=== PATIENT | female | born 1955 | race Caucasian/White ===

== ENCOUNTER → 2017-10-31 | Outpatient (CLI) | payer BC | END | disposition home or self-care (01) | LOC: C.LABMFLN 08:40 | PROVIDERS: ATTEND Family Medicine | DX: E78.5 Hyperlipidemia, unspecified (principal) ==

== ENCOUNTER 2024-03-11 09:06 | Inpatient (IN) ==
--- OUTSIDE RECORDS SUMMARY | 2024-03-11 09:12 | External Medical Summary | Summary of Care ---
Author Name Unknown Organization [facility] Address [address] [place] [address] Phone [phone] Care Team Providers Care Transport Technician Name Role Phone Sudheer Joaquin Primary Care Provider + [phone] Encounter Details Date Type Department Care Team (Latest Contact Info) Description 12/23/2023 8:27 AM EDT - 12/23/2023 11:59 PM EDT Hospital Encounter Radiology, [address] [place] [address] Arrived Discharge Disposition: Home - Self Care Allergies Active Allergy Reactions Criticality Noted Date Comments Erythromycin Base Abdominal pain 03/29/2008 documented as of this encounter (statuses as of 12/24/2023) Medications Medication Sig Dispensed Refills Start Date End Date Status CALTRATE 600 1500 MG PO TABS 1 tab daily 0 Active MULTI-VITAMIN PO TABS 1 tab daily 0 Ac tive Meloxicam (MOBIC) 7.5 MG TabletIndications:Gene ralized osteoarthritis Take 1 Tab by mouth daily. for pain. 30 Tab 11 05/23/2017 Active ondansetron ODT (ZOFRAN) [address] 1 Tab on tongue every 8 hours as needed for Nausea. dissolve on tongue. 2 Tab 0 11/19/2017 Active Additional Information Patient not taking.Informant: At Discharge, Reported on 03/03/2023 Albuterol Sulfate (TO GO ALBUTEROL HFA) puff Two puffs every 4-6 hours as needed for cough or difficulty breathing, use with spacer 1 Each 0 11/19/2017 Active Additional Information Patient not taking.Informant: At Discharge, Reported on 03/03/2023 Omeprazole 20 MG Oral Capsule Delayed Release (PriLOSEC) Take 1 Capsule by mouth in the morning. 0 Active documented as of this encounter (statuses as of 12/24/2023) Active Problems Problem Noted Date Diagnosed Date ADVANCE DIRECTIVE INFORMATION 03/29/2008 documented as of this encounter (statuses as of 12/24/2023) Immunizations Name Administration Dates Next Due Seasonal Influenza, Split, IIV3, With Preserve, Inj 05/30/2017 documented as of this encounter Social History Tobacco Use Types Packs/Day Years Used Date Smoking Tobacco: Never Smokeless Tobacco: Never Alcohol Use Standard Drinks/Week Comments No 0 (1 standard drink = 0.6 oz pur e alcohol) Sex and Gender Information Value Date Recorded Sex Assigned at Not on file Gender Identity Not on file Sexual Orientation Not on file Job Start Date Occupation Industry Not on file Not on file Not on file documented as of this encounter Plan of Treatment Pending Results Name Type Priority Associated Diagnoses Date /Time MAMMOGRAM SCREENING LYN BILATERAL Medical Imaging Routine Encounter for screening mammogram for malignant neoplasm of breast 12/23/2023 8:41 AM EDT Scheduled Procedures Name Priority Associated Diagnoses Date/Ti me COLONOSCOPY FLEXIBLE PROXIMAL DIAGNOSTIC Recall History of colon polyps Health Maintenance Due Date Last Done Comments Hepatitis C Screening 1971 DTaP,Tdap,and Td Vaccines (1 - Tdap) 01/30/1972 Hepatitis B (2 of 3 - 19+ 3-dose series) 09/05/1995 08/08/1995 Cologuard 1998 Fecal Occult Blood Test 1998 Sigmoidoscopy 1998 Zoster Vaccines (1 of 2) 2003 Depression Screening 05/23/2018 05/23/2017 Lipid Panel 05/23/2022 05/23/2017, 11/0 10/2015, 05/11/2014 COVID-19 Vaccine ( - season) 2023 Mammogram 12/22/2023 12/21/2022, 0311/2021, 10/15/2020, Additional history exists Influenza Vaccine (FLU shot) (Season Ended) 2024 05/30/2017 Colonoscopy 03/03/2026 03/03/2023, 02/06, 06/16/2017, Additional history exists Colorectal Cancer Screening 03/03/2026 DXA Scan 05/20/2030 05/20/2023, 06/08, 05/10/2014 Pneumococcal Vaccine: 65+ Years Completed 05/30/2019, 05/29/2018 RETIRED - COLONOSCOPY-EVERY 5 YRS AGES 18-100 Discontinued 03/03/2023, 03/03/2023, 06/16/2017, Additional history exists GARDASIL-HPV IMMUNIZATION SERIES Aged Out No longer eligible based on patient's age to complete this topic MENINGOCOCCAL (MENACTRA/MENVEO) Aged Out No longer eligible based on patient's age to complete this topic documented as of this encounter Medical Devices Not on filedocumented as of this encounter Visit Diagnoses Diagnosis Encounter for screening mammogram for malignant neoplasm of breast Other screening mammogram documented in this encounter Care Teams Transport Technician Relationship Specialty Start Date End Date [facility] [address] [facility] [id number] P[facility] - General Family Medicine 11/19/17 documented as of this encounter
--- NOTE | 2024-03-11 09:41 | Emergency Department Note ---
Impression & Plan Acute cholecystitis ED Provider Note Name: JOANNE ROSS Age: 69 Sex: Female Arrives Via: Walk-In Informant: Patient ED Provider: Cesar Jain MD Chief Complaint: Right flank pain Impression: As per impressions above Medical Decision Making: Pleasant 69-year-old female arrives for evaluation of right flank pain. On examination has some right upper quadrant discomfort. Associated with a fair amount of nausea. Laboratory workup is essentially unremarkable. Given the amount of discomfort she is having a CT of the ab pelvis was obtained. There is no evidence of renal colic or kidney infection however there is concerning findings for acute cholecystitis. I discussed this with general surgery who ordered an ultrasound of the gallbladder. No evidence of stones but does still have some pericholecystic fluid. Plan will be to bring into medicine team with HIDA scan done overnight and determination if surgery necessary tomorrow. I did give patient IV Mefoxin for presumptive management initially of cholecystitis. Patient's pain and nausea was managed with IV medications. Triage/Nursing Notes reviewed by Me Differential:Renal colic, UTI, cholecystitis, appendicitis, diverticulitis, mesenteric ischemia, aortic pathology, infections, inflammatory bowel disease, PUD, biliary pathology, as well as other pathologies. Vital Signs: reviewed and remarkable for no significant abnormalities Interventions: Dilaudid 0.5 mg IV, Zofran 4 mg IV, Reglan 5 mg IV, Benadryl 25 mg IV, normal saline bolus 1 L IV, Mefoxin 2 g IV Labs:ED labs Reviewed by me and remarkable for no significant abnormalities Imaging:CT of the abdomen pelvis with IV contrast as per mind from interpretation distention of the gallbladder. Radiologist notes some trace fluid around the gallbladder as well concerning for acute cholecystitis. Consults:Discussed with general surgery who evaluated the patient and advised ultrasound and hospitalization on medical service for further workup. Discussed with hospitalist who will bring in for HIDA scan and further management. Plan: Disposition:Hospitalization. Condition: Good History of Present Illness: 69-year-old female arrives for evaluation of flank pain. Patient with several days of right-sided flank pain. Had noticed this on and off for last few weeks but severe the last 2 to 3 days. Associate with nausea. Does not seem to get better with positioning. No radiation down legs. No urinary symptoms, fevers, chills, abdominal pain, chest pain or other concerning signs or symptoms. No falls, trauma, injuries. No recent dehydration. Was not doing any hiking. Has been traveling the last few weeks. No blood thinner or aspirin use. Past Medical History: Hypertension amongst others Home Medications: Lisinopril amongst others Allergies: Erythromycin ointment Vitals:Blood Pressure: 156/72, Pulse 67, RR 18, T 36.6C, O2 98% on RA Physical Exam: GENERAL: Patient is uncomfortable appearing and in moderate distress. RESPIRATORY: No dyspnea. Clear to auscultation and equal bilaterally. CARDIOVASCULAR: Regular rate and rhythm.No murmur appreciated. GASTROINTESTINAL: Mild tenderness to palpation of the right upper quadrant and some of the right abdomen. BACK: No midline tenderness, right CVA tenderness EXTREMITIES: Normal motion all extremities, no cyanosis, no edema. NEUROLOGIC: Alert and oriented. No focal neurologic deficits appreciated SKIN: No rash, no jaundice, no diaphoresis. PSYCH: Appropriate GCS: 15 ED Course: Times/Reassessments: Pain controlled with IV Dilaudid. Did have recurrent nausea for which Reglan given with improvement. Agreeable to hospitalization Cesar Jain MD Past Med/Surg History Problem List (Updated 03/11/24 @ 18:22 by Cesar Jain MD) Acute cholecystitis (Acute) Hypertension Acute cholecystitis Acute right flank pain Well adult on routine health check Right ear impacted cerumen Adenomatous colon polyp Myalgia Post-menopause ETD (eustachian tube dysfunction) Leukopenia Hyperlipidemia Osteopenia Left leg DVT COVID-19 Varicose veins of bilateral lower extremities with pain Bilateral calf pain SNHL (sensorineural hearing loss) Tinnitus, bilateral Atypical nevus Leukopenia Right hip pain Lumbar pain Right thyroid nodule Hyperlipidemia Encounter for screening mammogram for malignant neoplasm of breast Medical History Conductive hearing loss of both ears High frequency CHL Acute bronchitis Surgical History H/O colonoscopy 03/03/23 repeat 3yrs History of tubal ligation Hx of breast biopsy Family History Mother Heart disease Hypertension Hearing loss Myocardial infarction Unknown Breast cancer Father Stroke Hearing loss Grandmother Cancer Other No family history of allergies No family history of bleeding disorder Denies family history of Ovarian cancer Prostate cancer Colorectal cancer Social History Smoking Status: Never smoker Second Hand Exposure: No; Do You Dip or Chew Tobacco: No; Hx Alcohol Use: No Hx Substance Use: No Preferred Language: Yoruba Communication Ability: Effective Visual Impairment: Limited Hearing Ability: Normal Dough Braker Required: No Beliefs That Will Affect Care: None marital status: Current Living Situation: Spouse current occupational status: retired and other current occupation: part-time with [employer] How many Children do You have: 3 Other Information That Helps Us Care for You: No Feels Safe at Home: Yes Childhood Exposure to Second-Hand Smoke: No Diet: regular caffeine: Yes (coffee) during the past year weight has: remained stable Dental Care, Regularly: Yes Physical Activity Frequency: 3-4 Times per Week Physical Activity Frequency Comment: Walk, rides bicycle Seatbelt Use: always Sunscreen Use: Yes Do you think of yourself as: straight/heterosexual Gender Identity: Female Assistive Devices: Glasses Allergies Allergies Allergy/AdvReac Type Severity Reaction Status Date / Time erythromycin base AdvReac abdominal Verified 10/17/23 08:03 pain Home Meds Home Medications Medication Instructions Recorded Confirmed coenzyme Q10 75 mg capsule (Ultra 30 mg PO BID 01/18/23 03/11/24 CoQ10) salmon oil 1,000 mg-omega-3 fatty 1 cap PO BID 01/18/23 03/11/24 acids 210 mg capsule turmeric root extract 500 mg 750 mg PO BID 01/18/23 03/11/24 capsule red yeast rice 600 mg capsule 600 mg PO DAILY 10/17/23 03/11/24 Previous Rx's Medication Instructions Recorded lisinopril 5 mg tablet 5 mg PO DAILY #30 tabs 10/17/23 omeprazole 20 mg capsule,delayed 20 mg PO DAILY PRN heartburn #30 10/21/23 release caps Results & Data (ED) Vital Signs Vital Signs - 24 hr 03/11/24 09:07 03/11/24 11:30 Temperature 36.6 C Temperature Source Oral Pulse Rate 67 Pulse Rate [Right Finger] 72 Respiratory Rate 18 17 Respiratory Effort / Characteristics Non-Labored Spontaneous Respiratory Depth Normal Blood Pressure 156/72 H Blood Pressure [Right Arm] 179/86 H Blood Pressure Mean 100 Blood Pressure Mean [Right Arm] 117 Blood Pressure Position [Right Arm] Semi-fowlers Pulse Oximetry 98 93 Oxygen Delivery Method Room Air Room Air Sepsis Recent Fever Within 48 Hours No Sepsis New/Unexplained Change in Mental Status N/A Sepsis Action Taken by Nursing No Action Required Laboratory Data 03/11/24 09:52 03/11/24 09:52 Lab Results 03/11/24 03/11/24 03/11/24 Range/Units 09:52 09:53 10:14 WBC 4.86 (4.8-10.8) K/ul RBC 4.74 (4.20-5.40) M/uL Hgb 13.9 (12.0-16.0) g/dl POC Hgb 12.2 (12.0-16.0) g/dl Hct 42.5 (37.0-47.0) % POC Hct 36 L (37-47) % MCV 89.7 (80.0-100.0) fL MCH 29.3 (25.0-34.0) pg MCHC 32.7 (32.0-36.0) g/dL RDW Std Deviation 41.0 (36.4-46.3) fL RDW Coeff of Luther 12.4 (11.5-14.5) % Plt Count 172 (130-400) K/uL MPV 9.8 (9.4-12.4) fL Immature Gran % (Auto) 0.2 % Neut % (Auto) 68.6 % Lymph % (Auto) 24.9 % Traverse % (Auto) 4.9 % Eos % (Auto) 0.8 % Baso % (Auto) 0.6 % Neut # (Auto) 3.33 (1.40-6.50) K/uL Lymph # (Auto) 1.21 (1.20-3.40) K/uL Traverse # (Auto) 0.24 (0.11-0.59) K/uL Eos # (Auto) 0.04 (0.00-0.50) K/uL Baso # (Auto) 0.03 (0.00-0.20) K/uL Immature Gran # (Auto) 0.01 (0.01-0.20) K/uL POC Sodium 137 (135-144) mmol/L Sodium 136 (136-145) mmol/L POC Potassium 4.0 (3.3-5.0) mmol/L Potassium 4.1 (3.5-5.1) mmol/L POC Chloride 103 (101-112) mmol/L Chloride 101 (98-107) mmol/L Carbon Dioxide 29 (21-32) mmol/L POC Total CO2 25 (24-31) mmol/L Anion Gap 6 (3-11) POC Anion Gap 15.0 L (16-25) mmol/L POC BUN 10 (7-18) mg/dl BUN 11 (6-23) mg/dl Creatinine 0.77 (0.6-1.2) mg/dl POC Creatinine 0.8 (0.6-1.3) mg/dl Est Cr Clr Drug Dosing 55.3 ml/min Est GFR ( Amer) 90.0 ml/min Est GFR (Non-Af Amer) 77.7 ml/min BUN/Creatinine Ratio 14.3 (10-20) Glucose 102 H (70-99(Fasting)) mg/dl POC Glucose (other) 96 (70-99) mg/dl Calcium 9.6 (8.6-10.3) mg/dl POC Ioniz Calcium Magno 1.16 (1.12-1.32) mmol/l Total Bilirubin 0.7 (0.2-1.0) mg/dl Direct Bilirubin 0.1 (0-0.2) mg/dl AST 20 (13-39) U/L ALT 12 (7-52) U/L Alkaline Phosphatase 60 (34-104) U/L Total Protein 7.1 (6.0-8.3) gm/dl Albumin 4.4 (3.4-5.0) gm/dl Lipase 25 (11-82) U/L Urine Color Yellow Urine Appearance Clear (Clear) Urine pH 6.5 (4.5-7.5) Ur Specific Seneca 1.025 (1.000-1.030) Urine Protein Negative (Negative) Urine Glucose (UA) Negative (Negative) Urine Ketones Negative (Negative) Urine Blood Negative (Negative) Urine Nitrite Negative (Negative) Urine Bilirubin Negative (Negative) Urine Urobilinogen Negative (Negative) Ur Leukocyte Esterase 1+ H (Negative) Urine WBC (Auto) 0-5 (0-5) /hpf Urine RBC (Auto) 0-2 (0-2) /hpf U Hyaline Cast (Auto) 0-2 (0-2) /lpf U Epithel Cells (Auto) 0-2 (0-2) /hpf Urine Bacteria (Auto) None Seen (None Seen) Administered Medications Hydromorphone HCl (Hydromorphone Inj 0.5 Mg/0.5 Ml Syr) 0.25 mg IV Q3H PRN PRN Reason: Mod-Sev Pain (Scale 4-10) Stop: 03/25/24 13:19 Last Admin: 03/11/24 16:30 Dose: 0.25 mg Documented By: DOMINIK Potassium Chloride/Sodium Chloride (Normal Saline W/20 Meq Kcl) 20 meq in 1,000 mls @ 80 mls/hr IV .[id number] [facility]; Protocol Stop: 03/12/24 14:29 Last Infusion: 03/11/24 17:51 Dose: 80 mls/hr Documented By: Infusion: 03/11/24 16:36 Dose: 0 mls/hr Documented By: Admin: 03/11/24 14:04 Dose: 80 mls/hr Documented By: AMADO Discontinued Medications Diphenhydramine HCl (Diphenhydramine 50 Mg/Ml Vial) 25 mg IV NOW STA Stop: 03/11/24 11:15 Last Admin: 03/11/24 11:27 Dose: 25 mg Documented By: AMADO Hydromorphone HCl (Hydromorphone Inj 0.5 Mg/0.5 Ml Syr) 0.5 mg IV NOW STA Stop: 03/11/24 09:39 Last Admin: 03/11/24 09:53 Dose: 0.5 mg Documented By: AMADO Sodium Chloride (Nss) 1,000 mls @ 999 mls/hr IV .Q1H1M ONE Stop: 03/11/24 10:38 Last Infusion: 03/11/24 11:45 Dose: Infused Documented By: Admin: 03/11/24 09:49 Dose: 999 mls/hr Documented By: AMADO Cefoxitin Sodium (Mefoxin) 2,000 mg in 60 mls @ 100 mls/hr IV NOW STA Stop: 03/11/24 12:14 Last Infusion: 03/11/24 12:49 Dose: Infused Documented By: Admin: 03/11/24 12:03 Dose: 100 mls/hr Documented By: AMADO Pantoprazole Sodium 40 mg/ (Syringe) 10 mls @ 5 mls/min IV NOW ONE Stop: 03/11/24 13:46 Last Admin: 03/11/24 14:04 Dose: 5 mls/min Documented By: AMADO Piperacillin Sod/Tazobactam (Sod 4.5 gm/ Dextrose) 100 mls @ 200 mls/hr IV NOW ONE; Protocol Stop: 03/11/24 16:59 Last Infusion: 03/11/24 17:21 Dose: Infused Documented By: Admin: 03/11/24 16:32 Dose: 200 mls/hr Documented By: DOMINIK Ioversol (Optiray 320 100ml) 94 ml IV ONCE ONE Stop: 03/11/24 10:51 Last Admin: 03/11/24 10:50 Dose: 94 ml Documented By: ANGELA Metoclopramide HCl (Metoclopramide Hcl Inj 5 Mg/Ml 2 Ml Vial) 5 mg IV ONE ONE Stop: 03/11/24 11:15 Last Admin: 03/11/24 11:27 Dose: 5 mg Documented By: AMADO Ondansetron HCl (Ondansetron Inj 2 Mg/Ml 2 Ml Vial) 4 mg IV NOW STA Stop: 03/11/24 09:39 Last Admin: 03/11/24 09:53 Dose: 4 mg Documented By: AMADO Imaging Data Radiologist's Impression: Abdomen/Pelvis CT 03/11/24 09:[address] WITH IV CONTRAST CT DOSE: 739.95 mGy.cm HISTORY: right flank pain TECHNIQUE: Multiaxial CT images of the abdomen and pelvis were performed following the use of intravenous contrast. A dose lowering technique was utilized adhering to the principles of ALARA. COMPARISON STUDY: None. FINDINGS: The lung bases are clear. No pneumoperitoneum. No pneumatosis. No acute fractures. The liver, spleen, pancreas, adrenal glands, and right kidney are unremarkable. There is a 4 mm fat-containing lesion within the left kidney consistent with an angiomyolipoma. The main portal vein is patent. The gallbladder is mildly distended with trace pericholecystic fluid and minimal pericholecystic inflammatory change. This is suspicious for an acute cholecystitis. Mild calcified plaque within the normal caliber abdominal aorta. No retroperitoneal or pelvic lymphadenopathy. Normal bladder. No ureteral stones. No hydronephrosis. The uterus and bilateral adnexa are unremarkable. Trace pelvic free fluid. This is likely physiologic. Colonic diverticulosis. No evidence for acute diverticulitis. No bowel wall thickening or obstruction. Normal appendix. IMPRESSION: 1. Distended gallbladder with trace pericholecystic fluid and subtle inflammatory change. This likely represents acute cholecystitis. Surgical consultation recommended. 2. No renal or ureteral stones. No hydronephrosis. 3. No bowel wall thickening or obstruction. ACT 112: Negative or not required by law. Electronically signed by: Stanton Burton M.D. 03/11/2024 11:15 AM Liver Ultrasound 03/11/24 11:53 ABDOMINAL ULTRASOUND, RIGHT UPPER QUADRANT HISTORY: Abnormal CT. Right upper quadrant pain for eval acute aren, and cholelithiasis. COMPARISON: None. FINDINGS: Pancreas: The pancreas demonstrates a normal echotexture. Liver: There is mild intrahepatic bile duct dilatation noted. No hepatic masses. Gallbladder: The gallbladder is distended. No gallstones identified. No significant gallbladder wall thickening. Trace pericholecystic fluid is noted. The technologist was unable to assess for a sonographic Haines's sign due to the patient's pain medication. CBD: Upper limits of normal measuring 6.2 mm Right kidney: No hydronephrosis. IMPRESSION: 1. Distended gallbladder with trace pericholecystic fluid. However, there are no gallstones or gallbladder wall thickening. Therefore, these findings are equivocal for acute acalculus cholecystitis and could be due to underlying hepatic pathology. Clinical correlation recommended. 2. Mild intrahepatic bile duct dilatation. However, the common bile duct is normal in caliber. ACT 112: Negative or not required by law. Electronically signed by: Stanton Burton M.D. 03/11/2024 1:37 PM Discharge Plan Visit Data Chief Complaint: Back Injury/Pain Stated Complaint: BACK PAIN ED Provider: Cesar Jain Discharge Problem: Acute cholecystitis Patient Disposition: Admitted As Inpatient Discharge Instructions Interventions: ED Discharge Assessment Last Done: 03/11/24 14:55
[2024-03-11] MEDS: SODIUM CHLORIDE 0.9% 1,000 ML IV ONE (09:49)
[2024-03-11] MEDS: HYDROmorphone INJ 0.5 MG/0.5 ML SYR IV STA (09:53)
[2024-03-11] MEDS: ONDANSETRON INJ 2 MG/ML 2 ML VIAL IV STA (09:53)
[2024-03-11 10:02] LABS: Basophils # (auto) 0.03 K/uL (0.00-0.20); Basophils % (auto) 0.6 %; Eosinophils # (auto) 0.04 K/uL (0.00-0.50); Eosinophils % (auto) 0.8 %; Hematocrit (blood only) 42.5 % (37.0-47.0); Hemoglobin 13.9 g/dl (12.0-16.0); Immature Granulocytes # (auto) 0.01 K/uL (0.01-0.20); Immature Granulocytes % (auto) 0.2 %; Lymphocytes # (auto) 1.21 K/uL (1.20-3.40); Lymphocytes % (auto) 24.9 %; Mean Corpuscular Hemoglobin 29.3 pg (25.0-34.0); Mean Corpuscular Hgb Conc 32.7 g/dL (32.0-36.0); Mean Corpuscular Volume 89.7 fL (80.0-100.0); Mean Platelet Volume 9.8 fL (9.4-12.4); Monocytes # (auto) 0.24 K/uL (0.11-0.59); Monocytes % (auto) 4.9 %; Neutrophils # (auto) 3.33 K/uL (1.40-6.50); Neutrophils % (auto) 68.6 %; Platelet Count 172 K/uL (130-400); RDW Coefficient of Variation 12.4 % (11.5-14.5); Red Blood Count 4.74 M/uL (4.20-5.40); White Blood Count 4.86 K/ul (4.8-10.8)
[2024-03-11 10:06] LABS: Appearance Urine Clear (Clear); Bacteria Urine Automated None Seen (None Seen); Bilirubin Urine Negative (Negative); Blood Urine Negative (Negative); Cast Urine Automated 0-2 /lpf (0-2); Color Urine Yellow; Epithelial Cell Urine Auto 0-2 /hpf (0-2); Glucose Urine UA Negative (Negative); Ketones Urine Negative (Negative); Leukocyte Esterase Urine 1+ (Negative); Nitrite Urine Negative (Negative); Protein Urine Negative (Negative); RBC Urine Automated 0-2 /hpf (0-2); Specific Gravity Urine 1.025 (1.000-1.030); Urobilinogen Urine Negative (Negative); WBC Urine Automated 0-5 /hpf (0-5); pH Urine 6.5 (4.5-7.5)
[2024-03-11 10:23] LABS: Albumin Level 4.4 gm/dl (3.4-5.0); BUN Creatinine Ratio 14.3 (10-20); Bilirubin Direct 0.1 mg/dl (0-0.2); Bilirubin,Total 0.7 mg/dl (0.2-1.0); Calcium 9.6 mg/dl (8.6-10.3); Creatinine Clr Calc Pharmacy 55.3 ml/min; Est GFR (Non-African American) 77.7 ml/min; Potassium 4.1 mmol/L (3.5-5.1); Total Protein 7.1 gm/dl (6.0-8.3)
[2024-03-11 10:27] LABS: iSTAT Creatinine 0.8 mg/dl (0.6-1.3); iSTAT Hemoglobin 12.2 g/dl (12.0-16.0); iSTAT Ionized Calcium 1.16 mmol/l (1.12-1.32)
[2024-03-11] MEDS: OPTIRAY 320 100ml IV ONE (10:50)
--- NOTE | 2024-03-11 11:17 | CT Scan Report ---
ABDOMEN AND PELVIS CT WITH IV CONTRAST CT DOSE: 739.95 mGy.cm HISTORY: right flank pain TECHNIQUE: Multiaxial CT images of the abdomen and pelvis were performed following the use of intrave nous contrast. A dose lowering technique was utilized adhering to the principles of ALARA. COMPARISON STUDY: None. FINDINGS: The lung bases are clear. No pneumoperitoneum. No pneumatosis. No acute fractures. The live r, spleen, pancreas, adrenal glands, and right kidney are unremarkable. There is a 4 mm fat-containin g lesion within the left kidney consistent with an angiomyolipoma. The main portal vein is patent. Th e gallbladder is mildly distended with trace pericholecystic fluid and minimal pericholecystic inflam matory change. This is suspicious for an acute cholecystitis. Mild calcified plaque within the normal caliber abdominal aorta. No retroperitoneal or pelvic lymphadenopathy. Normal bladder. No ureteral s tones. No hydronephrosis. The uterus and bilateral adnexa are unremarkable. Trace pelvic free fluid. This is likely physiologic. Colonic diverticulosis. No evidence for acute diverticulitis. No bowel wa ll thickening or obstruction. Normal appendix. IMPRESSION: 1. Distended gallbladder with trace pericholecystic fluid and subtle inflammatory change. This likely represents acute cholecystitis. Surgical consultation recommended. 2. No renal or ureteral stones. No hydronephrosis. 3. No bowel wall thickening or obstruction. ACT 112: Negative or not required by law. Electronically signed by: Stanton Burton M.D. 03/11/2024 11:15 AM
[2024-03-11] MEDS: diphenhydrAMINE 50 MG/ML VIAL IV STA (11:27)
[2024-03-11] MEDS: METOCLOPRAMIDE HCL INJ 5 MG/ML 2 ML VIAL IV ONE (11:27)
[2024-03-11] MEDS: cefOXitin 2,000 MG/60 ML BAG IV STA (12:03)
--- NOTE | 2024-03-11 12:32 | Surgery Consultation ---
Date of Consultation March 11, 2024 Assessment & Plan (1) Acute right flank pain: This is a 69yF with a PMH of ABDI PICHARDO who presents to the [facility] ED on 03/11/24 with complaints of R sided flank pain. The patient states the pain has been intermittent since about Tuesday, but has become more severe and constant ove rnight. Due to her symptoms she reports to the ER for further evaluation. She underwent workup with a CT a/p that shows a distended gallbladder with trace pericholecystic fluid and subtle inflammatory change. concerning for acute cholecystitis. Blood work shows WBC 4.8, Hbg 13.9, Cr 0.77. LFTs are within normal limits. Vital signs are stable. On exam patient's abdomen is soft, non distended, with discomfort to palpation in the epigastric and RUQ regions and along R upper back. CT scan does not make mention of cholelithiasis. Therefore in the meantime we will obtain a RUQ US for further evaluation. If there is no mention of gallstones on US then we would recommend a HIDA scan be obtain to further rule in or out cholecystitis. In the meantime while further workup is underway we would recommend if patient can be admitted to the medicine service and we will follow along closely. We will tentatively add patient on to the OR schedule for tomorrow if workup does indeed nocturnist physician to be strongly + for gallbladder etiology of her pain. Keep NPO/IVF and IV abx. Discussed plan with patient and who are agreeable. Supervising Physician Co-Signing Physician Notes pnt d/w Christin Sullivan, labs and imaging reviewed, agree with above. Presented with flank pain, CT showed distended gallbladder, possi cholecystitis. No stones, wbc normal. US showed no stones. Recommend admit to medicine, HIDA scan. History of Present Illness History of Present Illness This is a 69yF with a PMH of ABDI PICHARDO who presents to the [facility] ED on 03/11/24 with complaints of R sided flank pain that is stabbing in nature. The patient states the pain has been intermittent since about Tuesday, but has become more severe and constant overnight. When asked to point where her pain is she refers to her R flank area. She says at its worst the pain was a 10/10 and she could not get comfortable [id number] last night. Due to her symptoms she reports to the ER for further evaluation. She underwent workup with a CT a/p that shows a distended gallbladder with trace pericholecystic fluid and subtle inflammatory change. This likely represents acute cholecystitis. Patient reports she did vomit in the ER, but believes this to be secondary to meds she received. She does feel slightly better than when she presented at this point. She denies any fevers/chills, CP/SOB, or change in bowel habits. She denies any urinary symptoms. She never had pain like this before. No issues in the past with eating spicy/fatty/greasy meals. PSH includes a tubal ligation. She did last eat mac and cheese and a chili dog for dinner yesterday, has been NPO since. Allergies Allergy/AdvReac Type Severity Reaction Status Date / Time erythromycin base AdvReac abdominal Verified 10/17/23 08:03 pain Home Medications Medication Instructions Recorded Confirmed Type coenzyme Q10 75 mg capsule (Ultra 30 mg PO BID 01/18/23 03/11/24 History CoQ10) salmon oil 1,000 mg-omega-3 fatty 1 cap PO BID 01/18/23 03/11/24 History acids 210 mg capsule turmeric root extract 500 mg 750 mg PO BID 01/18/23 03/11/24 History capsule lisinopril 5 mg tablet 5 mg PO DAILY #30 tabs 10/17/23 03/11/24 Rx red yeast rice 600 mg capsule 600 mg PO DAILY 10/17/23 03/11/24 History omeprazole 20 mg capsule,delayed 20 mg PO DAILY PRN heartburn #30 10/21/23 03/11/24 Rx release caps Patient History Medical History Conductive hearing loss of both ears High frequency CHL Acute bronchitis Surgical History H/O colonoscopy 03/03/23 repeat 3yrs History of tubal ligation Hx of breast biopsy Family History Mother Heart disease Hypertension Hearing loss Myocardial infarction Unknown Breast cancer Father Stroke Hearing loss Grandmother Cancer Other No family history of allergies No family history of bleeding disorder Denies family history of Ovarian cancer Prostate cancer Colorectal cancer Social History Smoking Status: Never smoker Second Hand Exposure: No; Do You Dip or Chew Tobacco: No; Hx Alcohol Use: No Hx Substance Use: No Preferred Language: Estonian Visual Impairment: Limited Hearing Ability: Normal marital status: Current Living Situation: Spouse current occupational status: retired and other current occupation: part-time with [email or web address] How many Children do You have: 3 Feels Safe at Home: Yes Childhood Exposure to Second-Hand Smoke: No Diet: regular caffeine: Yes (coffee) during the past year weight has: remained stable Dental Care, Regularly: Yes Physical Activity Frequency: 3-4 Times per Week Physical Activity Frequency Comment: Walk, rides bicycle Seatbelt Use: always Sunscreen Use: Yes Do you think of yourself as: straight/heterosexual Gender Identity: Female Assistive Devices: Glasses Review of Systems Constitutional: no fever and no chills Respiratory: no dyspnea Cardiovascular: no chest pain Gastrointestinal: + abdominal pain, + nausea and + vomitin g; no change in bowel habits Genitourinary: no problem reported Musculoskeletal: R flank pain into upper R back Physical Exam Physical Exam: awake/alert Constitutional: well developed and well nourished Respiratory: normal respiratory effort Gastrointestinal (Abdomen): Inspection/Auscultation: abdomen not distended Percussion/Palpation: + abdomen tender (i elicit ttp in epigastric/ruq regions to deep palpation) and abdomen soft Results & Data Vital Signs (Past 12 Hours) Vital Signs Temp Pulse Pulse Resp BP BP Pulse Ox 03/11/24 11:30 72 17 179/86 H 93 03/11/24 09:07 97.9 F 67 18 156/72 H 98 O2 Del Method 03/11/24 11:30 Room Air 03/11/24 09:07 Room Air Diagnostic Findings ABDOMEN AND PELVIS CT WITH IV CONTRAST CT DOSE: 739.95 mGy.cm HISTORY: right flank pain TECHNIQUE: Multiaxial CT images of the abdomen and pelvis were performed following the use of intravenous contrast. A dose lowering technique was utilized adhering to the principles of ALARA. COMPARISON STUDY: None. FINDINGS: The lung bases are clear. No pneumoperitoneum. No pneumatosis. No acute fractures. The liver, spleen, pancreas, adrenal glands, and right kidney are unremarkable. There is a 4 mm fat-containing lesion within the left kidney consistent with an angiomyolipoma. The main portal vein is patent. The gallb ladder is mildly distended with trace pericholecystic fluid and minimal pericholecystic inflammatory change. This is suspicious for an acute cholecystitis. Mild calcified plaque within the normal caliber abdominal aorta. No retroperitoneal or pelvic lymphadenopathy. Normal bladder. No ureteral stones. No hydronephrosis. The uterus and bilateral adnexa are unremarkable. Trace pelvic free fluid. This is likely physiologic. Colonic diverticulosis. No evidence for acute diverticulitis. No bowel wall thickening or obstruction. Normal appendix. IMPRESSION: 1. Distended gallbladder with trace pericholecystic fluid and subtle inflammatory change. This likely represents acute cholecystitis. Surgical consultation recommended. 2. No renal or ureteral stones. No hydronephrosis. 3. No bowel wall thickening or obstruction. ACT 112: Negative or not required by law. Electronically signed by: Stanton Burton M.D. 03/11/2024 11:15 AM PG Care Time/CCT Total # of Minutes Spent Total Time Spent with Patient: Total time spent is greater than 50% in coordination of care (as documented) at patient's floor/unit and/or counseling patient: Coding Level of Care Code 30471 OP VST NEW MOD 45 MIN Diagnoses Acute right flank pain R10.9
[2024-03-11] MEDS ORDERED: ONDANSETRON INJ 2 MG/ML 2 ML VIAL IV PRN (13:21)
--- NOTE | 2024-03-11 13:22 | History & Physical Report ---
Date of Service March 11, 2024 Assessment & Plan (1) Acute cholecystitis: (2) Hyperlipidemia: (3) SNHL (sensorineural hearing loss): (4) Hypertension: (5) Right hip pain: (6) Lumbar pain: Plan Acute cholecystitis CT scan shows distended gallbladder with trace pericholecystic fluid and subtle inflammatory change. This likely represents acute cholecystitis Liver ultrasound liver ultrasound shows distended gallbladder with trace pericholecystic fluid. However there are no gallstones or gallbladder wall thickening. Therefore these findings are equivocal for acute calculus cholecystitis and could be due to underlying fatty pathology. Mild intrahepatic bile duct dilatation noted with common bile duct normal in caliber N.p.o. Pantoprazole 40 mg IV daily Zofran 4 mg IV every 6 hours as needed Dilaudid 0.25 mg IV every 3 hours as needed for moderate to severe pain Zosyn 4.5 g IV every 8 hours Order HIDA scan Consult general surgery Hypertension- Hold lisinopril GERD- Change omeprazole to pantoprazole IV Osteoarthritis- Hold OTC medications History of Present Illness Chief Complaint: The patient presents to the emergency department with 1 week of persistent back pain, today, awoke with nausea, vomiting and abdominal discomfort with right- sided flank pain. Primary Care Provider: Sudheer Joaquin DO The patient is a 69-year-old female with a past medical history including hyperlipidemia, left lower extremity DVT, SNHL,, right hip pain, and low back pain. She presents to the emergency department with approximately 1 week of back pain and right flank pain, but upon awakening today developed nausea/vomiting with epigastric and right upper quadrant discomfort. Allergies Allergy/AdvReac Type Severity Reaction Status Date / Time erythromycin base AdvReac abdominal Verified 10/17/23 08:03 pain Home Medications Medication Instructions Recorded Confirmed Type coenzyme Q10 75 mg capsule (Ultra 30 mg PO BID 01/18/23 03/11/24 History CoQ10) salmon oil 1,000 mg-omega-3 fatty 1 cap PO BID 01/18/23 03/11/24 History acids 210 mg capsule turmeric root extract 500 mg 750 mg PO BID 01/18/23 03/11/24 History capsule lisinopril 5 mg tablet 5 mg PO DAILY #30 tabs 10/17/23 03/11/24 Rx red yeast rice 600 mg capsule 600 mg PO DAILY 10/17/23 03/11/24 History omeprazole 20 mg capsule,delayed 20 mg PO DAILY PRN heartburn #30 10/21/23 03/11/24 Rx release caps Past Med/Surg History Problem List (Updated 03/11/24 @ 18:22 by Cesar Jain MD) Acute cholecystitis (Acute) Hypertension Acute cholecystitis Acute right flank pain Well adult on routine health check Right ear impacted cerumen Adenomatous colon polyp Myalgia Post-menopause ETD (eustachian tube dysfunction) Leukopenia Hyperlipidemia Osteopenia Left leg DVT COVID-19 Varicose veins of bilateral lower extremities with pain Bilateral calf pain SNHL (sensorineural hearing loss) Tinnitus, bilateral Atypical nevus Leukopenia Right hip pain Lumbar pain Right thyroid nodule Hyperlipidemia Encounter for screening mammogram for malignant neoplasm of breast Medical History Conductive hearing loss of both ears High frequency CHL Acute bronchitis Surgical History H/O colonoscopy 03/03/23 repeat 3yrs History of tubal ligation Hx of breast biopsy Family History Mother Heart disease Hypertension Hearing loss Myocardial infarction Unknown Breast cancer Father Stroke Hearing loss Grandmother Cancer Other No family history of allergies No family history of bleeding disorder Denies family history of Ovarian cancer Prostate cancer Colorectal cancer Social History Smoking Status: Never smoker Second Hand Exposure: No; Do You Dip or Chew Tobacco: No; Hx Alcohol Use: No Hx Substance Use: No Preferred Language: Indonesian Communication Ability: Effective Visual Impairment: Limited Hearing Ability: Normal Motor Transport Inspector Required: No Beliefs That Will Affect Care: None marital status: Current Living Situation: Spouse current occupational status: retired and other current occupation: part-time with [employer] How many Children do You have: 3 Other Information That Helps Us Care for You: No Feels Safe at Home: Yes Childhood Exposure to Second-Hand Smoke: No Diet: regular caffeine: Yes (coffee) during the past year weight has: remained stable Dental Care, Regularly: Yes Physical Activity Frequency: 3-4 Times per Week Physical Activity Frequency Comment: Walk, rides bicycle Seatbelt Use: always Sunscreen Use: Yes Do you think of yourself as: straight/heterosexual Gender Identity: Female Assistive Devices: Glasses Review of Systems Review of Systems: The patient denies chest pain, palpitations, shortness of breath, dyspnea on exertion, cough, lower extremity swelling, sore throat, fevers, chills, sweats, weight change, blood in urine or stool, dysuria, urinary frequency or urgency, lightheadedness, dizziness, headache, memory loss, loss of consciousness, rash, abnormal bruising or bleeding, imbalance, focal weakness, numbness or tingling in arms or legs, generalized arthralgias or myalgias, neck pain, or night sweats. The review of systems is otherwise negative other than for that already noted above, and at least 10 systems have been reviewed. Physical Exam Physical Exam: The patient is awake, alert and oriented 3, well developed and well nourished, normocephalic and atraumatic, lying in bed and in no acute distress. HEENT--PERRL, EOMI, mucous membranes and oropharynx mildly dry. Neck--supple. No JVD. No bruits. Thyroid normal, trachea midline, no adenopathy. Heart--normal S1 and S2. No murmurs, rubs or gallops. Lungs--clear bilaterally, no respiratory distress, no accessory muscle use. Abdomen--normal bowel sounds and soft. Mild epigastric pain. Nondistended Extremities--no cyanosis or clubbing. No edema. Dermatologic--normal skin turgor, normal color, no abnormal lymph nodes, no rash. Neurologic--cranial nerves II through XII grossly intact. Rheumatologic--normal range of motion. Psychiatric--normal affect. Results & Data Results & Data Vital Signs (Past 12 Hours) Vital Signs Temp Pulse Pulse Resp BP BP Pulse Ox 03/11/24 11:30 72 17 179/86 H 93 03/11/24 09:07 36.6 C 67 18 156/72 H 98 O2 Del Method 03/11/24 11:30 Room Air 03/11/24 09:07 Room Air Laboratory Results Laboratory Results WBC 4.86 K/ul (4.8-10.8) 03/11/24 09:52 RBC 4.74 M/uL (4.20-5.40) 03/11/24 09:52 Hgb 13.9 g/dl (12.0-16.0) 03/11/24 09:52 POC Hgb 12.2 g/dl (12.0-16.0) 03/11/24 10:14 Hct 42.5 % (37.0-47.0) 03/11/24 09:52 POC Hct 36 % (37-47) L 03/11/24 10:14 MCV 89.7 fL (80.0-100.0) 03/11/24 09:52 MCH 29.3 pg (25.0-34.0) 03/11/24 09:52 MCHC 32.7 g/dL (32.0-36.0) 03/11/24 09:52 RDW Std Deviation 41.0 fL (36.4-46.3) 03/11/24 09:52 RDW Coeff of Luther 12.4 % (11.5-14.5) 03/11/24 09:52 Plt Count 172 K/uL (130-400) 03/11/24 09:52 MPV 9.8 fL (9.4-12.4) 03/11/24 09:52 Immature Gran % (Auto) 0.2 % 03/11/24 09:52 Neut % (Auto) 68.6 % 03/11/24 09:52 Lymph % (Auto) 24.9 % 03/11/24 09:52 Wayne % (Auto) 4.9 % 03/11/24 09:52 Eos % (Auto) 0.8 % 03/11/24 09:52 Baso % (Auto) 0.6 % 03/11/24 09:52 Neut # (Auto) 3.33 K/uL (1.40-6.50) 03/11/24 09:52 Lymph # (Auto) 1.21 K/uL (1.20-3.40) 03/11/24 09:52 Wayne # (Auto) 0.24 K/uL (0.11-0.59) 03/11/24 09:52 Eos # (Auto) 0.04 K/uL (0.00-0.50) 03/11/24 09:52 Baso # (Auto) 0.03 K/uL (0.00-0.20) 03/11/24 09:52 Immature Gran # (Auto) 0.01 K/uL (0.01-0.20) 03/11/24 09:52 POC Sodium 137 mmol/L (135-144) 03/11/24 10:14 Sodium 136 mmol/L (136-145) 03/11/24 09:52 POC Potassium 4.0 mmol/L (3.3-5.0) 03/11/24 10:14 Potassium 4.1 mmol/L (3.5-5.1) 03/11/24 09:52 POC Chloride 103 mmol/L (101-112) 03/11/24 10:14 Chloride 101 mmol/L (98-107) 03/11/24 09:52 Carbon Dioxide 29 mmol/L (21-32) 03/11/24 09:52 POC Total CO2 25 mmol/L (24-31) 03/11/24 10:14 Anion Gap 6 (3-11) 03/11/24 09:52 POC Anion Gap 15.0 mmol/L (16-25) L 03/11/24 10:14 POC BUN 10 mg/dl (7-18) 03/11/24 10:14 BUN 11 mg/dl (6-23) 03/11/24 09:52 Creatinine 0.77 mg/dl (0.6-1.2) 03/11/24 09:52 POC Creatinine 0.8 mg/dl (0.6-1.3) 03/11/24 10:14 Est Cr Clr Drug Dosing 55.3 ml/min 03/11/24 09:52 Est GFR ( Amer) 90.0 ml/min 03/11/24 09:52 Est GFR (Non-Af Amer) 77.7 ml/min 03/11/24 09:52 BUN/Creatinine Ratio 14.3 (10-20) 03/11/24 09:52 Glucose 102 mg/dl (70-99(Fasting)) H 03/11/24 09:52 POC Glucose (other) 96 mg/dl (70-99) 03/11/24 10:14 Calcium 9.6 mg/dl (8.6-10.3) 03/11/24 09:52 POC Ioniz Calcium Magno 1.16 mmol/l (1.12-1.32) 03/11/24 10:14 Total Bilirubin 0.7 mg/dl (0.2-1.0) 03/11/24 09:52 Direct Bilirubin 0.1 mg/dl (0-0.2) 03/11/24 09:52 AST 20 U/L (13-39) 03/11/24 09:52 ALT 12 U/L (7-52) 03/11/24 09:52 Alkaline Phosphatase 60 U/L (34-104) 03/11/24 09:52 Total Protein 7.1 gm/dl (6.0-8.3) 03/11/24 09:52 Albumin 4.4 gm/dl (3.4-5.0) 03/11/24 09:52 Lipase 25 U/L (11-82) 03/11/24 09:52 Urine Color Yellow 03/11/24 09:53 Urine Appearance Clear (Clear) 03/11/24 09:53 Urine pH 6.5 (4.5-7.5) 03/11/24 09:53 Ur Specific [place] 1.025 (1.000-1.030) 03/11/24 09:53 Urine Protein Negative (Negative) 03/11/24 09:53 Urine Glucose (UA) Negative (Negative) 03/11/24 09:53 Urine Ketones Negative (Negative) 03/11/24 09:53 Urine Blood Negative (Negative) 03/11/24 09:53 Urine Nitrite Negative (Negative) 03/11/24 09:53 Urine Bilirubin Negative (Negative) 03/11/24 09:53 Urine Urobilinogen Negative (Negative) 03/11/24 09:53 Ur Leukocyte Esterase 1+ (Negative) H 03/11/24 09:53 Urine WBC (Auto) 0-5 /hpf (0-5) 03/11/24 09:53 Urine RBC (Auto) 0-2 /hpf (0-2) 03/11/24 09:53 U Hyaline Cast (Auto) 0-2 /lpf (0-2) 03/11/24 09:53 U Epithel Cells (Auto) 0-2 /hpf (0-2) 03/11/24 09:53 Urine Bacteria (Auto) None Seen (None Seen) 03/11/24 09:53 Impressions Abdomen/Pelvis CT 03/11/24 09:[address] WITH IV CONTRAST CT DOSE: 739.95 mGy.cm HISTORY: right flank pain TECHNIQUE: Multiaxial CT images of the abdomen and pelvis were performed following the use of intravenous contrast. A dose lowering technique was utilized adhering to the principles of ALARA. COMPARISON STUDY: None. FINDINGS: The lung bases are clear. No pneumoperitoneum. No pneumatosis. No acute fractures. The liver, spleen, pancreas, adrenal glands, and right kidney are unremarkable. There is a 4 mm fat-containing lesion within the left kidney consistent with an angiomyolipoma. The main portal vein is patent. The gallbladder is mildly distended with trace pericholecystic fluid and minimal pericholecystic inflammatory change. This is suspicious for an acute cholecystitis. Mild calcified plaque within the normal caliber abdominal aorta. No retroperitoneal or pelvic lymphadenopathy. Normal bladder. No ureteral stones. No hydronephrosis. The uterus and bilateral adnexa are unremarkable. Trace pelvic free fluid. This is likely physiologic. Colonic diverticulosis. No evidence for acute diverticulitis. No bowel wall thickening or obstruction. Normal appendix. IMPRESSION: 1. Distended gallbladder with trace pericholecystic fluid and subtle inflammatory change. This likely represents acute cholecystitis. Surgical consultation recommended. 2. No renal or ureteral stones. No hydronephrosis. 3. No bowel wall thickening or obstruction. ACT 112: Negative or not required by law. Electronically signed by: Stanton Burton M.D. 03/11/2024 11:15 AM Liver Ultrasound 03/11/24 11:53 ABDOMINAL ULTRASOUND, RIGHT UPPER QUADRANT HISTORY: Abnormal CT. Right upper quadrant pain for eval acute aren, and cholelithiasis. COMPARISON: None. FINDINGS: Pancreas: The pancreas demonstrates a normal echotexture. Liver: There is mild intrahepatic bile duct dilatation noted. No hepatic masses. Gallbladder: The gallbladder is distended. No gallstones identified. No significant gallbladder wall thickening. Trace pericholecystic fluid is noted. The technologist was unable to assess for a sonographic Haines's sign due to the patient's pain medication. CBD: Upper limits of normal measuring 6.2 mm Right kidney: No hydronephrosis. IMPRESSION: 1. Distended gallbladder with trace pericholecystic fluid. However, there are no gallstones or gallbladder wall thickening. Therefore, these findings are equivocal for acute acalculus cholecystitis and could be due to underlying hepatic pathology. Clinical correlation recommended. 2. Mild intrahepatic bile duct dilatation. However, the common bile duct is normal in caliber. ACT 112: Negative or not required by law. Electronically signed by: Stanton Burton M.D. 03/11/2024 1:37 PM Code Status & VTE Plan Code Status Full code VTE Prophylaxis Plan VTE Prophylaxis will be ordered: Yes PG Care Time/CCT Total # of Minutes Spent Total Time Spent with Patient: Total time spent is greater than 50% in coordination of care (as documented) at patient's floor/unit and/or counseling patient: Coding Level of Care Code 09725 INT INP/OBS CARE 3/75MIN Diagnoses Acute cholecystitis K81.0 Hyperlipidemia E78.5 Sensorineural hearing loss (SNHL) of both ears H90.3 Laterality: bilateral Hypertension I10 Right hip pain M25.551 Lumbar pain M54.5 (3) SNHL (sensorineural hearing loss) Laterality: bilateral Qualified Code(s): H90.3 - Sensorineural hearing loss, bilateral
--- NOTE | 2024-03-11 13:38 | Ultrasound Report ---
ABDOMINAL ULTRASOUND, RIGHT UPPER QUADRANT HISTORY: Abnormal CT. Right upper quadrant pain for eval acute aren, and cholelithiasis. COMPARISON: None. FINDINGS: Pancreas: The pancreas demonstrates a normal echotexture. Liver: There is mild intrahepatic bile duct dilatation noted. No hepatic masses. Gallbladder: The gallbladder is distended. No gallstones identified. No significant gallbladder wall thickening. Trace pericholecystic fluid is noted. The technologist was unable to assess for a sonogra phic Haines's sign due to the patient's pain medication. CBD: Upper limits of normal measuring 6.2 mm Right kidney: No hydronephrosis. IMPRESSION: 1. Distended gallbladder with trace pericholecystic fluid. However, there are no gallstones or gallbl adder wall thickening. Therefore, these findings are equivocal for acute acalculus cholecystitis and could be due to underlying hepatic pathology. Clinical correlation recommended. 2. Mild intrahepatic bile duct dilatation. However, the common bile duct is normal in caliber. ACT 112: Negative or not required by law. Electronically signed by: Stanton Burton M.D. 03/11/2024 1:37 PM
[2024-03-11] MEDS: NSS + 20MEQ KCL 20 MEQ/1,000 ML BAG IV SCH (14:04)
[2024-03-11] MEDS: PANTOprazole 40 MG in SYRINGE 0 ML IV ONE (14:04)
[2024-03-11] MEDS: HYDROmorphone INJ 0.5 MG/0.5 ML SYR IV PRN (16:30)
[2024-03-11] MEDS: PIPER/TAZO 4.5g in D5W MINI-B 100 ML IV ONE (16:32)
[2024-03-11] MEDS: PIPERACILLIN/TAZOBACTAM 4.5 GM in DEXTROSE 5% MINI-B 100 ML IV SCH (22:05)
[2024-03-11] MEDS: ONDANSETRON INJ 2 MG/ML 2 ML VIAL IV PRN (22:28)
[2024-03-12 08:33] LABS: Basophils # (auto) 0.03 K/uL (0.00-0.20); Basophils % (auto) 0.6 %; Eosinophils # (auto) 0.07 K/uL (0.00-0.50); Eosinophils % (auto) 1.4 %; Hematocrit (blood only) 36.3 % (37.0-47.0); Hemoglobin 12.1 g/dl (12.0-16.0); Immature Granulocytes # (auto) 0.02 K/uL (0.01-0.20); Immature Granulocytes % (auto) 0.4 %; Lymphocytes % (auto) 20.6 %; Mean Corpuscular Hemoglobin 29.3 pg (25.0-34.0); Mean Corpuscular Hgb Conc 33.3 g/dL (32.0-36.0); Mean Corpuscular Volume 87.9 fL (80.0-100.0); Mean Platelet Volume 10.1 fL (9.4-12.4); Monocytes # (auto) 0.27 K/uL (0.11-0.59); Monocytes % (auto) 5.6 %; Neutrophils # (auto) 3.46 K/uL (1.40-6.50); Neutrophils % (auto) 71.4 %; Platelet Count 150 K/uL (130-400); RDW Coefficient of Variation 12.6 % (11.5-14.5); RDW Standard Deviation 40.6 fL (36.4-46.3); Red Blood Count 4.13 M/uL (4.20-5.40); White Blood Count 4.85 K/ul (4.8-10.8)
[2024-03-12 09:20] LABS: Albumin Level 3.7 gm/dl (3.4-5.0); Bilirubin,Total 0.8 mg/dl (0.2-1.0); Calcium 8.4 mg/dl (8.6-10.3); Magnesium 1.9 mg/dl (1.7-2.4); Potassium 3.9 mmol/L (3.5-5.1)
[2024-03-12 09:26] LABS: Albumin Globulin Ratio 1.6 (0.9-2); BUN Creatinine Ratio 13.6 (10-20); Creatinine Clr Calc Pharmacy 64.5 ml/min; Est GFR (Non-African American) 88.9 ml/min; Globulin 2.3 gm/dl (2.5-4.0)
--- NOTE | 2024-03-12 09:43 | Nuclear Medicine Report ---
NUCLEAR HEPATOBILIARY SCAN CLINICAL HISTORY: Right upper quadrant abdominal pain. COMPARISON STUDY: Abdominal CT and ultrasound dated 03/11/2024. TECHNIQUE: Dynamic images of the liver and anterior abdomen were obtained every 5 minutes for a total of 5.6 minutes following the IV administration of 35 mCi of technetium 99m Mebrofenin. FINDINGS: The hepatobiliary scan shows prompt and homogeneous hepatic uptake. There is visualized act ivity within the intra and extrahepatic biliary tree at 10 minutes, and within the gallbladder at 20 minutes. There is normal biliary to bowel transit, with small bowel visualized by 20 minutes. IMPRESSION: There is no scintigraphic evidence of acute cholecystitis. ACT 112: Negative or not required by law. Electronically signed by: Wilder Hughse M.D. 03/12/2024 9:41 AM
[2024-03-12] MEDS: PANTOprazole 40 MG in SYRINGE 0 ML IV SCH (11:12)
--- NOTE | 2024-03-12 12:33 | Surgery Progress Note ---
Date of Service March 12, 2024 Assessment & Plan (1) Acute right flank pain: Plan: Pt here w/ R flank pain CT a/p with distended gallbladder but no cholelithiasis. further workup ordered with a RUQ US that revealed a distended gallbladder, trace fluid with again no evidence of cholelithiasis or GB wall thickening, equivocal findings Today HIDA obtained which was negative for acute aren WBC 4.8. LFTs are within normal limits. vitals stable On exam abdomen is soft/non distended, with discomfort in the epigastric/RUQ regions and into the R flank/back regions Unclear etiology at this point. In addition she does not appear to have the regular symptoms of cholecystitis May warrant further workup to determine source of pain From our POV she may have a diet as there are no plans for acute surgical intervention indicated at this time Admission and Anticipated Discharge Date Admission Date: March 11, 2024 Supervising Physician Co-Signing Physician Notes Patient seen and examined, labs and imaging reviewed, agree with above. Admitted with right flank pain and concern for cholecystitis on initial CT scan. Ultrasound showed no stones and no significant inflammation. She was admitted to medicine and HIDA scan was completed this morning which showed no evidence of cholecystitis. On exam she is afebrile stable vitals. Minimal tenderness in right upper quadrant, significant tenderness to palpation in her right flank. WBC normal. CT scan and ultrasound personally reviewed and interpreted and noted distended gallbladder but there is no significant inflammation and no cholelithiasis. HIDA personally viewed and interpreted and agree with the assessment of filling of the gallbladder as well as filling of the small bowel. No evidence of acute cholecystitis No surgical intervention indicated at this time From surgery standpoint, she is okay to trial a diet. Further workup for right flank pain left to medicine Subjective Patient still reporting pain in R flank. No nausea/vomiting/diarrhea/bloating. Physical Exam Physical Exam: awake/alert, no distress Respiratory: normal respiratory effort Gastrointestinal (Abdomen): Inspection/Auscultation: abdomen not distended Percussion/Palpation: + abdomen tender (ttp in epigastric/RUQ and into R flank/back area) and abdomen soft Results & Data Vital Signs (Past 12 Hours) Vital Signs Temp Pulse Resp BP Pulse Ox O2 Del Method 03/12/24 07:46 98.4 F 69 19 127/69 93 Room Air PG Care Time/CCT Total # of Minutes Spent Total Time Spent with Patient: Total time spent is greater than 50% in coordination of care (as documented) at patient's floor/unit and/or counseling patient: Coding Level of Care Code 69902 SUB INP/OBS CARE 1/25MIN Diagnoses Acute right flank pain R10.9
--- NOTE | 2024-03-12 13:12 | Hospitalist Progress Note ---
Date of Service March 12, 2024 Assessment & Plan (1) Right flank pain: Plan: Patient presented to ED on 03/11 with complaints of right flank pain -CTAP 03/11: revealed distended gallbladder w/ trace pericholecystic fluid and subtle inflammatory change. likely represents acute choley -RUQ US 03/11: distended gallbladder w/ trace pericholecystic fluid. no gallstones/gallbladder wall thickening. equivocal for acute acalculous cholecystics and could be due to underlying hepatic pathology. mild intrahepatic bile duct dilation. CBD normal in caliber -HIDA scan reviewed 03/12: negative -surgery note reviewed 03/12 - no plans for surgery, can advance diet -urinalysis 03/11: negative -reviewed CBC/BMP 03/12: stable -lumbar x-ray reviewed 03/12: negative -etiology may be related to musculoskeletal -added lidocaine patch to right lower back region -could consider short course of steroids -added Tylenol 650mg QID -switched IV Dilaudid to tramadol prn for pain AM CBC, BMP (2) Lumbar pain: Plan: see plan above Plan Chronic conditions: Hypertension- lisinopril GERD- pantoprazole IV Diet: low fiber DVT prophylaxis: SCD's code: full disposition: continued inpatient stay for pain control, anticipate discharge home 03/13. updated at bedside 03/12. Admission and Anticipated Discharge Date Admission Date: March 11, 2024 Supervising Physician Co-Signing Physician Notes The patient was not seen by me. The chart was reviewed. Case discussed with CLARY Urrutia. Agree with assessment and plan Subjective Patient seen and examined this morning. Patient was eating lunch at time of encounter. She endorses right lower back/flank pain. She reports heat at home was helping this. She was recently on road trip for 3.5 weeks and states she did complain of this pain on and off. She denies any associated symptoms with it. Physical Exam 2 Constitutional: WD/WN, vitals as above Eyes: PERRL, conjunctivae normal, anicteric sclerae Respiratory: normal respiratory effort, lungs clear to auscultation Cardiovascular: RRR, no murmur, no edema Musculoskeletal: tenderness to palpation in right lower back region Psychiatric: A+Ox3, euthymic affect Results & Data Results & Data Vital Signs (Past 12 Hours) Vital Signs Temp Pulse Resp BP Pulse Ox O2 Del Method 03/12/24 07:46 36.9 C 69 19 127/69 93 Room Air Laboratory Results 03/12/24 08:04 03/12/24 08:04 Diagnostic Findings Lumbar Spine X-Ray 03/12/24 13:29 LUMBAR SPINE 5 VIEWS CLINICAL HISTORY: Right-sided low back pain. FINDINGS: Five views of the lumbar spine are correlated with abdominal CT dated 03/11/2024. The skeletal structures are osteopenic. There is no radiographic evidence of fracture or malalignment. Vertebral body height and alignment are maintained. Anterior and lateral marginal osteophytes are seen throughout. The transverse and spinous processes appear intact. There is no radiographic evidence of spondylolysis. Mild facet arthropathy is seen in the lower lumbar region. There is minimal degenerative disc space narrowing. The visualized bony pelvis appears intact. Sclerotic change is noted in the sacroiliac joints. No bowel obstruction is seen. IMPRESSION: No acute bony abnormality is seen involving the lumbar spine. Dictated: 03/12/2024 5:08 PM Transcribed: 03/12/2024 5:16 PM Jaciel [id number] [email or web address] Electronically signed by: Wilder Hughes M.D. 03/12/2024 5:19 PM Hepatobiliary Scan Nuclear Medicine 03/12/24 13:40 NUCLEAR HEPATOBILIARY SCAN CLINICAL HISTORY: Right upper quadrant abdominal pain. COMPARISON STUDY: Abdominal CT and ultrasound dated 03/11/2024. TECHNIQUE: Dynamic images of the liver and anterior abdomen were obtained every 5 minutes for a total of 5.6 minutes following the IV administration of 35 mCi of technetium 99m Mebrofenin. FINDINGS: The hepatobiliary scan shows prompt and homogeneous hepatic uptake. There is visualized activity within the intra and extrahepatic biliary tree at 10 minutes, and within the gallbladder at 20 minutes. There is normal biliary to bowel transit, with small bowel visualized by 20 minutes. IMPRESSION: There is no scintigraphic evidence of acute cholecystitis. ACT 112: Negative or not required by law. Electronically signed by: Wilder Hughes M.D. 03/12/2024 9:41 AM PG Care Time/CCT Total # of Minutes Spent Total Time Spent with Patient: Total time spent is greater than 50% in coordination of care (as documented) at patient's floor/unit and/or counseling patient: Coding Level of Care Code 43415 SUB INP/OBS CARE 350MIN Diagnoses Right flank pain R10.9 Lumbar pain M54.5
[2024-03-12] MEDS: LIDOCAINE 5% 1 PATCH TD STA (13:35)
--- NOTE | 2024-03-12 17:20 | XRay Report ---
LUMBAR SPINE 5 VIEWS CLINICAL HISTORY: Right-sided low back pain. FINDINGS: Five views of the lumbar spine are correlated with abdominal CT dated 03/11/2024. The skeleta l structures are osteopenic. There is no radiographic evidence of fracture or malalignment. Vertebral body height and alignment are maintained. Anterior and lateral marginal osteophytes are seen through out. The transverse and spinous processes appear intact. There is no radiographic evidence of spondyl olysis. Mild facet arthropathy is seen in the lower lumbar region. There is minimal degenerative disc space narrowing. The visualized bony pelvis appears intact. Sclerotic change is noted in the sacroil iac joints. No bowel obstruction is seen. IMPRESSION: No acute bony abnormality is seen involving the lumbar spine. Dictated: 03/12/2024 5:08 PM Transcribed: 03/12/2024 5:16 PM Jaciel [id number] [email or web address] Electronically signed by: Wilder Hughes M.D. 03/12/2024 5:19 PM
[2024-03-12] MEDS: traMADol HCL 50 MG TABLET PO PRN (18:02)
[2024-03-13 07:12] LABS: Basophils # (auto) 0.03 K/uL (0.00-0.20); Basophils % (auto) 0.7 %; Eosinophils # (auto) 0.19 K/uL (0.00-0.50); Eosinophils % (auto) 4.6 %; Hematocrit (blood only) 35.6 % (37.0-47.0); Hemoglobin 12.1 g/dl (12.0-16.0); Immature Granulocytes # (auto) 0.01 K/uL (0.01-0.20); Immature Granulocytes % (auto) 0.2 %; Lymphocytes # (auto) 1.26 K/uL (1.20-3.40); Lymphocytes % (auto) 30.8 %; Mean Corpuscular Hemoglobin 29.6 pg (25.0-34.0); Mean Platelet Volume 10.4 fL (9.4-12.4); Monocytes # (auto) 0.28 K/uL (0.11-0.59); Monocytes % (auto) 6.8 %; Neutrophils # (auto) 2.32 K/uL (1.40-6.50); Neutrophils % (auto) 56.9 %; Platelet Count 149 K/uL (130-400); RDW Coefficient of Variation 12.6 % (11.5-14.5); RDW Standard Deviation 40.2 fL (36.4-46.3); Red Blood Count 4.09 M/uL (4.20-5.40); White Blood Count 4.09 K/ul (4.8-10.8)
[2024-03-13 07:36] LABS: Albumin Globulin Ratio 1.7 (0.9-2); Albumin Level 3.8 gm/dl (3.4-5.0); BUN Creatinine Ratio 14.1 (10-20); Bilirubin,Total 0.6 mg/dl (0.2-1.0); Calcium 8.7 mg/dl (8.6-10.3); Creatinine Clr Calc Pharmacy 66.5 ml/min; Est GFR (African American) 104.1 ml/min; Est GFR (Non-African American) 89.8 ml/min; Globulin 2.3 gm/dl (2.5-4.0); Magnesium 2.1 mg/dl (1.7-2.4); Potassium 4.7 mmol/L (3.5-5.1); Total Protein 6.1 gm/dl (6.0-8.3)
[2024-03-13] MEDS: lisinopril 5 MG TAB PO SCH (08:58)
[2024-03-13] MEDS: POLYETHYLENE (MIRALAX) 17 GM PACK PO SCH (12:21)
--- NOTE | 2024-03-13 14:15 | Hospitalist Progress Note ---
Date of Service March 13, 2024 Assessment & Plan (1) Right flank pain: Plan: Patient presented to ED on 03/11 with complaints of right flank pain -CTAP 03/11: revealed distended gallbladder w/ trace pericholecystic fluid and subtle inflammatory change. likely represents acute choley -RUQ US 03/11: distended gallbladder w/ trace pericholecystic fluid. no gallstones/gallbladder wall thickening. equivocal for acute acalculous cholecystics and could be due to underlying hepatic pathology. mild intrahepatic bile duct dilation. CBD normal in caliber -HIDA scan reviewed 03/12: negative -surgery note reviewed 03/12 - no plans for surgery, can advance diet -urinalysis 03/11: negative -reviewed CBC/BMP 03/12: stable -lumbar x-ray reviewed 03/12: negative -etiology may be related to musculoskeletal -added lidocaine patch to right lower back region -could consider short course of steroids -added Tylenol 650mg QID -switched IV Dilaudid to tramadol prn for pain -consulted pain management for possible SI joint injection. -NPO after midnight incase of procedure. -reviewed CBC/BMP 03/13: stable. (2) Lumbar pain: Plan: see plan above Plan Chronic conditions: Hypertension- lisinopril GERD- pantoprazole IV Diet: low fiber DVT prophylaxis: SCD's code: full disposition: continued inpatient stay for pain control, anticipate discharge home 03/13. updated at bedside 03/13. Admission and Anticipated Discharge Date Admission Date: March 11, 2024 Subjective Patient seen and examined this morning. Patient reports the pain medication is helping her right lumbar pain. She reports this has happened in the past but feels more severe than usual. Denies any additional complaints aside from the pain. Physical Exam 2 Constitutional: WD/WN, vitals as above Eyes: PERRL, conjunctivae normal, anicteric sclerae Respiratory: normal respiratory effort, lungs clear to auscultation Cardiovascular: RRR, no murmur, no edema Skin: no rashes, warm and dry Results & Data Results & Data Vital Signs (Past 12 Hours) Vital Signs Temp Pulse Resp BP Pulse Ox O2 Del Method 03/13/24 07:17 36.6 C 63 18 150/68 H 95 Room Air Laboratory Results 03/13/24 06:12 03/13/24 06:12 PG Care Time/CCT Total # of Minutes Spent Total Time Spent with Patient: Total time spent is greater than 50% in coordination of care (as documented) at patient's floor/unit and/or counseling patient: Coding Level of Care Code 25701 SUB INP/OBS CARE 2/35MIN Diagnoses Right flank pain R10.9 Lumbar pain M54.5
[2024-03-14 06:42] LABS: Basophils # (auto) 0.04 K/uL (0.00-0.20); Basophils % (auto) 0.9 %; Eosinophils # (auto) 0.17 K/uL (0.00-0.50); Eosinophils % (auto) 3.6 %; Hematocrit (blood only) 36.9 % (37.0-47.0); Hemoglobin 12.6 g/dl (12.0-16.0); Immature Granulocytes # (auto) 0.01 K/uL (0.01-0.20); Immature Granulocytes % (auto) 0.2 %; Lymphocytes # (auto) 1.57 K/uL (1.20-3.40); Lymphocytes % (auto) 33.5 %; Mean Corpuscular Hemoglobin 29.5 pg (25.0-34.0); Mean Corpuscular Hgb Conc 34.1 g/dL (32.0-36.0); Mean Corpuscular Volume 86.4 fL (80.0-100.0); Mean Platelet Volume 10.1 fL (9.4-12.4); Monocytes # (auto) 0.38 K/uL (0.11-0.59); Monocytes % (auto) 8.1 %; Neutrophils # (auto) 2.51 K/uL (1.40-6.50); Neutrophils % (auto) 53.7 %; Platelet Count 157 K/uL (130-400); RDW Coefficient of Variation 12.4 % (11.5-14.5); RDW Standard Deviation 39.7 fL (36.4-46.3); Red Blood Count 4.27 M/uL (4.20-5.40); White Blood Count 4.68 K/ul (4.8-10.8)
[2024-03-14 07:04] LABS: Albumin Globulin Ratio 1.5 (0.9-2); Albumin Level 3.8 gm/dl (3.4-5.0); BUN Creatinine Ratio 15.5 (10-20); Bilirubin,Total 0.6 mg/dl (0.2-1.0); Calcium 8.9 mg/dl (8.6-10.3); Est GFR (African American) 99.3 ml/min; Est GFR (Non-African American) 85.7 ml/min; Globulin 2.5 gm/dl (2.5-4.0); Magnesium 2.1 mg/dl (1.7-2.4); Potassium 4.7 mmol/L (3.5-5.1); Total Protein 6.3 gm/dl (6.0-8.3)
[2024-03-14 07:32] VITALS: BP 166/71; PULSE 64; RESP 16; TEMP 98.4; O2SAT 93
--- NOTE | 2024-03-14 08:25 | Pain Management Consultation ---
Date of Consultation March 14, 2024 Assessment & Plan (1) Right flank pain: (2) Acute right flank pain: Plan Pain in the right flank may be myofascial related. I have ordered her prednisone and baclofen. She does have Tramadol ordered if needed for breakthrough pain. Pain in the right SI joint in minimal on exam and does not warrant inpatient SI joint injection at this time but this could be considered on an outpatient basis. I did remove her NPO status and resumed regular dies. She is understanding of the plan and in agreement. She is anticipating discharge to home today. Recommend discharging her on Prednisone taper, Baclofen, and Tramadol. Thank you for the consultation. Please contact with any questions or concerns. History of Present Illness Reason for Consultation: Flank pain Attending Physician: Aubrey Thompson History of Present Illness Mrs. Wilcox is a 69-year-old female that has been admitted to [facility] for right flank pain. She was thought to have cholecystitis but further workup was unremarkable. She is reporting 5 days of right sided flank pain. She describes an aching, cramping, intermittent stabbing pain. No aggravating or alleviating symptoms. She did just return from a long car trip but she denies any injuries. There is a history of right hip pain to which she received a right intra-articular hip injection? by [facility]? Patient denies any radicular symptoms down the leg. Currently receiving Tramadol with moderate pain relief and without side effects. Case discussed with Dr. Jade Healy Allergies Allergy/AdvReac Type Severity Reaction Status Date / Time erythromycin base AdvReac abdominal Verified 10/17/23 08:03 pain Home Medications Medication Instructions Recorded Confirmed Type coenzyme Q10 75 mg capsule (Ultra 30 mg PO BID 01/18/23 03/11/24 History CoQ10) salmon oil 1,000 mg-omega-3 fatty 1 cap PO BID 01/18/23 03/11/24 History acids 210 mg capsule turmeric root extract 500 mg 750 mg PO BID 01/18/23 03/11/24 History capsule lisinopril 5 mg tablet 5 mg PO DAILY #30 tabs 10/17/23 03/11/24 Rx red yeast rice 600 mg capsule 600 mg PO DAILY 10/17/23 03/11/24 History omeprazole 20 mg capsule,delayed 20 mg PO DAILY PRN heartburn #30 10/21/23 03/11/24 Rx release caps Patient History Medical History Conductive hearing loss of both ears High frequency CHL Acute bronchitis Surgical History H/O colonoscopy 03/03/23 repeat 3yrs History of tubal ligation Hx of breast biopsy Family History Mother Heart disease Hypertension Hearing loss Myocardial infarction Unknown Breast cancer Father Stroke Hearing loss Grandmother Cancer Other No family history of allergies No family history of bleeding disorder Denies family history of Ovarian cancer Prostate cancer Colorectal cancer Social History Smoking Status: Never smoker Second Hand Exposure: No; Do You Dip or Chew Tobacco: No; Hx Alcohol Use: No Hx Substance Use: No Preferred Language: Italian Communication Ability: Effective Visual Impairment: Limited Hearing Ability: Normal Tectonophysicist Required: No Beliefs That Will Affect Care: None marital status: Current Living Situation: Spouse current occupational status: retired and other current occupation: part-time with [employer] How many Children do You have: 3 Other Information That Helps Us Care for You: No Feels Safe at Home: Yes Childhood Exposure to Second-Hand Smoke: No Diet: regular caffeine: Yes (coffee) during the past year weight has: remained stable Dental Care, Regularly: Yes Physical Activity Frequency: 3-4 Times per Week Physical Activity Frequency Comment: Walk, rides bicycle Seatbelt Use: always Sunscreen Use: Yes Do you think of yourself as: straight/heterosexual Gender Identity: Female Assistive Devices: None Physical Exam Physical Exam: GENERAL: This is a pleasant 69 year old female in no acute distress. HEAD/FACE: Normocephalic and atraumatic. EYES: No drainage or conjunctival injection. ENT: Nose without bleeding or discharge. Oral mucosa moist. NECK: Full ROM without apparent pain. No swelling or masses noted. RESPIRATORY: Patient with unlabored breathing. No signs of respiratory distress. CHEST/AXILLA: Chest movement symmetrical. No deformities noted. ABDOMEN/GI: No distension BACK: Moves without difficulty. There is no thoracic or lumbar midline or facet joint tenderness. Mild tenderness along the right quadratus lumborum musculature without trigger points noted. Mild right SI joint tenderness. SKIN: Ina, warm and dry. No rash noted. MS/EXTREMITY: 5/5 strength of the lower extremities. Mild tenderness along the right greater trochanteric bursa. NEURO: Alert and appears oriented. Speech is fluent. Cranial Nerves are grossly intact. PSYCH: Alert, pleasant, affect is calm Results (Pain Clinic) Diagnostic Review Radiology Findings: LUMBAR SPINE 5 VIEWS CLINICAL HISTORY: Right-sided low back pain. FINDINGS: Five views of the lumbar spine are correlated with abdominal CT dated 03/11/2024. The skeletal structures are osteopenic. There is no radiographic evidence of fracture or malalignment. Vertebral body height and alignment are maintained. Anterior and lateral marginal osteophytes are seen throughout. The transverse and spinous processes appear intact. There is no radiographic evidence of spondylolysis. Mild facet arthropathy is seen in the lower lumbar region. There is minimal degenerative disc space narrowing. The visualized bony pelvis appears intact. Sclerotic change is noted in the sacroiliac joints. No bowel obstruction is seen. IMPRESSION: No acute bony abnormality is seen involving the lumbar spine. Dictated: 03/12/2024 5:08 PM Transcribed: 03/12/2024 5:16 PM Jaciel [id number] [email or web address] Electronically signed by: Wilder Hughes M.D. 03/12/2024 5:19 PM
[2024-03-14] MEDS: BACLOFEN 10 MG TAB PO SCH (09:28)
[2024-03-14] MEDS: predniSONE 20 MG TAB PO SCH (09:28)
--- NOTE | 2024-03-14 10:06 | Discharge Summary ---
Discharge Summary Date of Service March 14, 2024 Principal Dx & Hospital Course #1 = Principal Diagnosis (1) Right flank pain: Patient presented to ED on 03/11 with complaints of right flank pain. She underwent a CTAP on 03/11 that revealed a distended gallbladder with trace pericholecystic fluid and subtle inflammatory change that likely represents acute cholecystitis. Her RUQ US on 03/11 revealed a distended gallbladder w/ trace pericholecystic fluid, no gallstones/gallbladder wall thickening. Equivocal for acute acalculous cholecystitis and could be due to underlying hepatic pathology, mild intrahepatic bile duct dilation, normal CBD. HIDA scan 03/12 was negative. Surgery was consulted who recommended no surgery due to absence of acute choley on HIDA. Urinalysis on 03/11 was negative. Lumbar x-ray on 03/12 negative. Day of discharge CBC/BMP WNL. Pain management evaluated the patient who recommended steroids and baclofen along with pain medication. She was sent home on a prednisone taper, baclofen BID x 1 week, and tramadol as needed for pain. Recommended to follow up closely with her PCP and outpatient pain management as scheduled. (2) Lumbar pain: see plan above Plan Chronic conditions: Hypertension- lisinopril GERD- pantoprazole IV discussed discharge with at bedside 03/14. Admission HPI Per Admitting Provider The patient is a 69-year-old female with a past medical history including hyperlipidemia, left lower extremity DVT, SNHL,, right hip pain, and low back pain. She presents to the emergency department with approximately 1 week of back pain and right flank pain, but upon awakening today developed nausea/vomiting with epigastric and right upper quadrant discomfort. Discharge Exam Constitutional WD/WN, vitals as above Eyes PERRL, conjunctivae normal, anicteric sclerae Respiratory normal respiratory effort, lungs clear to auscultation Cardiovascular RRR, no murmur, no edema Skin no rashes, warm and dry Psychiatric A+Ox3, euthymic affect Updated Medication List Medication Instructions Recorded Confirmed Type coenzyme Q10 75 mg capsule (Ultra 30 mg PO BID 01/18/23 03/11/24 History CoQ10) salmon oil 1,000 mg-omega-3 fatty 1 cap PO BID 01/18/23 03/11/24 History acids 210 mg capsule turmeric root extract 500 mg 750 mg PO BID 01/18/23 03/11/24 History capsule lisinopril 5 mg tablet 5 mg PO DAILY #30 tabs 10/17/23 03/11/24 Rx red yeast rice 600 mg capsule 600 mg PO DAILY 10/17/23 03/11/24 History omeprazole 20 mg capsule,delayed 20 mg PO DAILY PRN heartburn #30 10/21/23 03/11/24 Rx release caps baclofen 10 mg tablet 10 mg PO BID #14 tabs 03/14/24 Rx prednisone 10 mg tablet 10 mg PO DIRECTED #16 tabs 03/14/24 Rx tramadol 50 mg tablet 50 mg PO Q6H PRN pain #20 tabs 03/14/24 Rx Hospital Stay Data Consultations 03/11/24 11:39 ED Decision to Admit Stat 03/11/24 12:46 ED Decision to Admit Stat 03/13/24 09:21 Consult Pain Management Routine Diagnostic Imagining Performed Abdomen/Pelvis CT 03/11/24 09:[address] WITH IV CONTRAST CT DOSE: 739.95 mGy.cm HISTORY: right flank pain TECHNIQUE: Multiaxial CT images of the abdomen and pelvis were performed following the use of intravenous contrast. A dose lowering technique was utilized adhering to the principles of ALARA. COMPARISON STUDY: None. FINDINGS: The lung bases are clear. No pneumoperitoneum. No pneumatosis. No acute fractures. The liver, spleen, pancreas, adrenal glands, and right kidney are unremarkable. There is a 4 mm fat-containing lesion within the left kidney consistent with an angiomyolipoma. The main portal vein is patent. The gallbladder is mildly distended with trace pericholecystic fluid and minimal pericholecystic inflammatory change. This is suspicious for an acute cholecystitis. Mild calcified plaque within the normal caliber abdominal aorta. No retroperitoneal or pelvic lymphadenopathy. Normal bladder. No ureteral stones. No hydronephrosis. The uterus and bilateral adnexa are unremarkable. Trace pelvic free fluid. This is likely physiologic. Colonic diverticulosis. No evidence for acute diverticulitis. No bowel wall thickening or obstruction. Normal appendix. IMPRESSION: 1. Distended gallbladder with trace pericholecystic fluid and subtle inflammatory change. This likely represents acute cholecystitis. Surgical consultation recommended. 2. No renal or ureteral stones. No hydronephrosis. 3. No bowel wall thickening or obstruction. ACT 112: Negative or not required by law. Electronically signed by: Stanton Burton M.D. 03/11/2024 11:15 AM Liver Ultrasound 03/11/24 11:53 ABDOMINAL ULTRASOUND, RIGHT UPPER QUADRANT HISTORY: Abnormal CT. Right upper quadrant pain for eval acute aren, and cholelithiasis. COMPARISON: None. FINDINGS: Pancreas: The pancreas demonstrates a normal echotexture. Liver: There is mild intrahepatic bile duct dilatation noted. No hepatic masses. Gallbladder: The gallbladder is distended. No gallstones identified. No significant gallbladder wall thickening. Trace pericholecystic fluid is noted. The technologist was unable to assess for a sonographic Haines's sign due to the patient's pain medication. CBD: Upper limits of normal measuring 6.2 mm Right kidney: No hydronephrosis. IMPRESSION: 1. Distended gallbladder with trace pericholecystic fluid. However, there are no gallstones or gallbladder wall thickening. Therefore, these findings are equivocal for acute acalculus cholecystitis and could be due to underlying hepatic pathology. Clinical correlation recommended. 2. Mild intrahepatic bile duct dilatation. However, the common bile duct is normal in caliber. ACT 112: Negative or not required by law. Electronically signed by: Stanton Burton M.D. 03/11/2024 1:37 PM Lumbar Spine X-Ray 03/12/24 13:29 LUMBAR SPINE 5 VIEWS CLINICAL HISTORY: Right-sided low back pain. FINDINGS: Five views of the lumbar spine are correlated with abdominal CT dated 03/11/2024. The skeletal structures are osteopenic. There is no radiographic evidence of fracture or malalignment. Vertebral body height and alignment are maintained. Anterior and lateral marginal osteophytes are seen throughout. The transverse and spinous processes appear intact. There is no radiographic evidence of spondylolysis. Mild facet arthropathy is seen in the lower lumbar region. There is minimal degenerative disc space narrowing. The visualized bony pelvis appears intact. Sclerotic change is noted in the sacroiliac joints. No bowel obstruction is seen. IMPRESSION: No acute bony abnormality is seen involving the lumbar spine. Dictated: 03/12/2024 5:08 PM Transcribed: 03/12/2024 5:16 PM Jaciel [id number] [email or web address] Electronically signed by: Wilder Hughes M.D. 03/12/2024 5:19 PM Hepatobiliary Scan Nuclear Medicine 03/12/24 13:40 NUCLEAR HEPATOBILIARY SCAN CLINICAL HISTORY: Right upper quadrant abdominal pain. COMPARISON STUDY: Abdominal CT and ultrasound dated 03/11/2024. TECHNIQUE: Dynamic images of the liver and anterior abdomen were obtained every 5 minutes for a total of 5.6 minutes following the IV administration of 35 mCi of technetium 99m Mebrofenin. FINDINGS: The hepatobiliary scan shows prompt and homogeneous hepatic uptake. There is visualized activity within the intra and extrahepatic biliary tree at 10 minutes, and within the gallbladder at 20 minutes. There is normal biliary to bowel transit, with small bowel visualized by 20 minutes. IMPRESSION: There is no scintigraphic evidence of acute cholecystitis. ACT 112: Negative or not required by law. Electronically signed by: Wilder Hughes M.D. 03/12/2024 9:41 AM Pending Results Patient Have Any Pending Studies at Discharge: No Discharge Instructions Given to Patient (Per Discharging Provider) Mrs. Wilcox, David were recently hospitalized for right flank pain. You underwent an extensive workup and were evaluated by our surgical team and case management team. You did not have an inflamed gallbladder. Please see recommendations below regarding your discharge. 1. Please take steroid taper as prescribed. 2. Please use Baclofen as needed for muscle spasms 3. Please use Tylenol or NSAIDs for pain -Tramadol may be used for severe or breakthrough pain every 6 hours 4. Please resume previous outpatient medications. 5. Follow up with pain management outpatient Please follow up with your PCP within 1-2 weeks. If you develop any worsening pain, chest pain, shortness of breath please report to the ER for further evaluation. Sincerely, Iliana Mclaughlin PA-C Total Time Total Time Spent Total Time Spent (In Minutes): 40 Total Time Includes: Examination of the Patient, Discharge Planning and Medication Reconciliation Coding Level of Care Code 73381 INP/OBS DISCH >30 MIN Diagnoses Right flank pain R10.9 Lumbar pain M54.5
== END 2024-03-14 11:59 | disposition home or self-care (01) | DRG 552 ==
LOC: ED 09:06 → SUATTDRO 13:22 → 3N 13:22